=== PATIENT | male | born 1995 | race Caucasian/White ===

== ENCOUNTER 2024-05-22 16:16 | Emergency (ER) | payer OTHER ==
[~2024-05-22] VITALS: Ht 172.7 cm; Wt 69.7 kg
[2024-05-22] MEDS ORDERED: TRAZODONE HCL50 MG PO (16:55)
[2024-05-22 17:11] VITALS: BP 133/89
== END 2024-05-22 17:10 | disposition home or self-care (01) ==
LOC: ED 16:16
DX: H00.012 Hordeolum externum right lower eyelid (principal); J06.9 Acute upper respiratory infection, unspecified; F17.200 Nicotine dependence, unspecified, uncomplicated
CPT/HCPCS: 99283